=== PATIENT | female | born 1955 | race Caucasian/White ===

== ENCOUNTER → 2017-03-10 | Outpatient (CLI) | payer BC ==
[~2017-03-10] VITALS: Ht 152.4 cm; Wt 81.2 kg
[~2017-03-10] MED LIST: ACCUPRIL20 MG PO; AMLODIPINE; AMLODIPINE BESY10 MG PO; ASPIR 8181 M1 PO; ATARAX,VISTARIL25 MG PO; BACTRIM,SEPT1 TABLET PO; CLONAZEPAM0.5 MG PO; CRESTOR; CRESTOR10 MG PO; CYMBALTA30 MG PO; GLUCOPHAGE500 MG PO; HYDROCODON-ACE1 EAC7 PO; KEFLEX500 MG PO; LAMOTRIGINE100 MG PO; LANTUS 10100 UNITS/ SC; LANTUS 3 M100 UNITS1 SC; LANTUS100 UNIT/1 SQ; LISINOPRIL10 MG PO; LO-DOSE ASPIRIN81 M2 PO; LOVASTATIN20 MG PO; METOPROLOL SUCC50 MG PO; NORVASC5 MG PO; NOVOLOG 10100 UNITS/ SC; NOVOLOG100 UNIT/2 SQ; PROZAC20 MG PO; QUETIAPINE FUM300 MG PO; QUETIAPINE FUMA50 MG PO; QUINAPRIL; ZOFRAN; ZOFRAN4 MG PO
[2017-03-10 11:26] LABS: POINT-OF-CARE METER ID UU13113694
[2017-03-10 12:22] LABS: ANION GAP 15 MEQ/L (2-14); CHLORIDE 101 MEQ/L (99-109); GFR ESTIMATE (CALCULATED) > 59 mL/min/; GLUCOSE 264 mg/dL (70-99); POTASSIUM 4.5 MEQ/L (3.7-5.4); SAMPLE HEMOLYSIS CHECK 0; SAMPLE ICTERIC CHECK 0; SAMPLE LIPEMIA CHECK 0; SODIUM 136 MEQ/L (136-147); UREA NITROGEN (BUN) 15 mg/dL (9-23)
== END | disposition home or self-care (01) ==
LOC: AMB 10:52
PROVIDERS: Internal Medicine
PROC: 0DBN8ZX Excision of Sigmoid Colon, Via Natural or Artificial Opening Endoscopic, Diagnostic (ICD-10-PCS; principal; 2017-03-10)
DX: D12.5 Benign neoplasm of sigmoid colon (principal); K63.3 Ulcer of intestine; K64.8 Other hemorrhoids; I10 Essential (primary) hypertension; E11.9 Type 2 diabetes mellitus without complications; F41.9 Anxiety disorder, unspecified; K21.9 Gastro-esophageal reflux disease without esophagitis; E78.5 Hyperlipidemia, unspecified; Z79.82 Long term (current) use of aspirin; Z79.4 Long term (current) use of insulin; Z79.1 Long term (current) use of non-steroidal anti-inflammatories (NSAID); Z79.899 Other long term (current) drug therapy
CPT/HCPCS: 80048; 82378; 82948; 88305; 93005; J2250; J3010

== ENCOUNTER → 2017-04-25 | Outpatient (CLI) | payer BC ==
[~2017-04-25] VITALS: Ht 152.4 cm; Wt 74.8 kg
[~2017-04-25] MED LIST changes: +TERCONAZOLE80 MG VG
[2017-04-25 11:02] LABS: POINT-OF-CARE METER ID UU14174212
[2017-04-25 11:57] LABS: POINT-OF-CARE METER ID UU13113819
== END | disposition home or self-care (01) ==
LOC: AMB 04-04 10:30
PROVIDERS: Internal Medicine
PROC: 3E0H8GC Introduction of Other Therapeutic Substance into Lower GI, Via Natural or Artificial Opening Endoscopic (ICD-10-PCS; principal; 2017-04-25)
DX: Z09 Encounter for follow-up examination after completed treatment for conditions other than malignant neoplasm (principal); Z86.018 Personal history of other benign neoplasm; K21.9 Gastro-esophageal reflux disease without esophagitis; Z79.82 Long term (current) use of aspirin
CPT/HCPCS: 82948

== ENCOUNTER 2017-05-06 11:02 | Inpatient (IN) | payer BC ==
[~2017-05-06] VITALS: Ht 152.4 cm; Wt 74.3 kg
[2017-06-04] MEDS ORDERED: LANTUS 3 M100 UNITS1 SC (12:50)
[2017-06-05 08:56] VITALS: BP 155/72
[2017-06-05 08:58] LABS: POINT-OF-CARE METER ID UU13113694
[2017-06-05 09:39] LABS: ANION GAP 14 MEQ/L (2-14); CHLORIDE 106 MEQ/L (99-109); GFR ESTIMATE (CALCULATED) > 59 mL/min/; POTASSIUM 4.3 MEQ/L (3.7-5.4); SAMPLE HEMOLYSIS CHECK 0; SAMPLE ICTERIC CHECK 0; SAMPLE LIPEMIA CHECK 0; SODIUM 141 MEQ/L (136-147); UREA NITROGEN (BUN) 13 mg/dL (9-23)
[2017-06-05 09:45] LABS: GLUCOSE 168 mg/dL (70-99)
[2017-06-05 14:53] LABS: POINT-OF-CARE METER ID UU13113675
[2017-06-05 16:10] VITALS: BP 151/66
[2017-06-05 18:00] VITALS: BP 140/60
[2017-06-06 00:30] VITALS: BP 142/65
[2017-06-06 03:47] LABS: POINT-OF-CARE METER ID UU13113725
[2017-06-06 06:28] LABS: POINT-OF-CARE METER ID UU13113725
[2017-06-06 07:57] VITALS: BP 148/67
[2017-06-06 12:03] LABS: POINT-OF-CARE METER ID UU13113725
[2017-06-06 15:47] VITALS: BP 181/74
[2017-06-06 15:48] LABS: ALKALINE PHOSPHATASE 64 IU/L (3-129); ANION GAP 9 MEQ/L (2-14); CHLORIDE 102 MEQ/L (99-109); GFR ESTIMATE (CALCULATED) > 59 mL/min/; GLUCOSE 167 mg/dL (70-99); POTASSIUM 4.1 MEQ/L (3.7-5.4); SAMPLE HEMOLYSIS CHECK 0; SAMPLE ICTERIC CHECK 0; SAMPLE LIPEMIA CHECK 0; SODIUM 138 MEQ/L (136-147); TOTAL BILIRUBIN 0.3 MG/DL (0.0-1.0); UREA NITROGEN (BUN) 5 mg/dL (9-23)
[2017-06-07] VITALS (7 sets, daily range): BP systolic 124–167; BP diastolic 58–72
[2017-06-07] LABS: POINT-OF-CARE METER ID UU13113725
[2017-06-07 06:00] LABS: POINT-OF-CARE METER ID UU13113725
[2017-06-07 08:52] LABS: HEMATOCRIT 36.4 % (36.0-46.0); MCH 31.1 PG (29.0-34.0); MCHC 33.8 G/DL (30.0-36.0); MCV 91.9 FL (83-99); MEAN PLAT.VOLUME 9.4 uM^3 (9.5-12.4); PLATELET COUNT 239 K/uL (156-360); RBC DIS.WIDTH-CV 11.9 % (11.8-14.6); RBC DIS.WIDTH-SD 40.2 % (39-53); RED BLOOD COUNT 3.96 M/uL (3.80-5.20); WHITE BLOOD COUNT 12.5 K/uL (4.1-10.2)
[2017-06-08 00:28] LABS: POINT-OF-CARE METER ID UU13113725
[2017-06-08 03:49] VITALS: BP 132/68
[2017-06-08 08:10] VITALS: BP 178/74
[2017-06-08 08:38] LABS: HEMATOCRIT 39.1 % (36.0-46.0); MCH 30.5 PG (29.0-34.0); MCHC 32.7 G/DL (30.0-36.0); MCV 93.1 FL (83-99); MEAN PLAT.VOLUME 9.4 uM^3 (9.5-12.4); PLATELET COUNT 294 K/uL (156-360); RBC DIS.WIDTH-CV 12.2 % (11.8-14.6); RBC DIS.WIDTH-SD 41.8 % (39-53); WHITE BLOOD COUNT 12.1 K/uL (4.1-10.2)
[2017-06-08 11:27] LABS: POINT-OF-CARE METER ID UU13113725
[2017-06-08 20:26] VITALS: BP 157/70
[2017-06-09 00:05] VITALS: BP 130/60
[2017-06-09 07:23] VITALS: BP 154/67
[2017-06-09 09:50] LABS: HEMATOCRIT 37.8 % (36.0-46.0); MCH 30.2 PG (29.0-34.0); MCHC 31.7 G/DL (30.0-36.0); MEAN PLAT.VOLUME 9.4 uM^3 (9.5-12.4); PLATELET COUNT 290 K/uL (156-360); RBC DIS.WIDTH-CV 12.5 % (11.8-14.6); RBC DIS.WIDTH-SD 43.9 % (39-53); RED BLOOD COUNT 3.98 M/uL (3.80-5.20)
[2017-06-09 10:28] LABS: ANION GAP 18 MEQ/L (2-14); CHLORIDE 110 MEQ/L (99-109); GFR ESTIMATE (CALCULATED) > 59 mL/min/; GLUCOSE 201 mg/dL (70-99); POTASSIUM 4.4 MEQ/L (3.7-5.4); SAMPLE HEMOLYSIS CHECK 0; SAMPLE ICTERIC CHECK 0; SAMPLE LIPEMIA CHECK 0; SODIUM 138 MEQ/L (136-147); UREA NITROGEN (BUN) 6 mg/dL (9-23)
[2017-06-09 16:45] VITALS: BP 168/77
[2017-06-09 18:29] LABS: POINT-OF-CARE METER ID UU13113725
[2017-06-09 23:18] VITALS: BP 137/59
[2017-06-10 05:41] LABS: POINT-OF-CARE METER ID UU13113725
[2017-06-10 07:21] VITALS: BP 126/57
[2017-06-10 11:56] VITALS: BP 175/79
[2017-06-10 15:53] VITALS: BP 160/73
[2017-06-11] VITALS (8 sets, daily range): BP systolic 136–172; BP diastolic 63–77
[2017-06-11 12:02] LABS: POINT-OF-CARE METER ID UU13113725
[2017-06-12] VITALS (8 sets, daily range): BP systolic 149–188; BP diastolic 64–81
[2017-06-12 09:38] LABS: ANION GAP 8 MEQ/L (2-14); CHLORIDE 107 MEQ/L (99-109); GFR ESTIMATE (CALCULATED) > 59 mL/min/; GLUCOSE 295 mg/dL (70-99); SAMPLE HEMOLYSIS CHECK 0; SAMPLE ICTERIC CHECK 0; SAMPLE LIPEMIA CHECK 0; SODIUM 141 MEQ/L (136-147); UREA NITROGEN (BUN) 2 mg/dL (9-23)
[2017-06-12 10:13] LABS: MCH 30.6 PG (29.0-34.0); MCHC 35.8 G/DL (30.0-36.0); MCV 85.7 FL (83-99); MEAN PLAT.VOLUME 8.9 uM^3 (9.5-12.4); PLATELET COUNT 323 K/uL (156-360); RBC DIS.WIDTH-CV 12.6 % (11.8-14.6); RBC DIS.WIDTH-SD 39.1 % (39-53); RED BLOOD COUNT 3.85 M/uL (3.80-5.20); WHITE BLOOD COUNT 6.5 K/uL (4.1-10.2)
[2017-06-12 21:53] LABS: POINT-OF-CARE METER ID UU13113725
[2017-06-13 03:42] VITALS: BP 159/61
[2017-06-13 06:07] LABS: POINT-OF-CARE METER ID UU13113725
[2017-06-13 07:30] VITALS: BP 135/61
[2017-06-13 09:52] LABS: POINT-OF-CARE METER ID UU13113725
[2017-06-13 11:16] LABS: POINT-OF-CARE METER ID UU13113725
[2017-06-13 11:30] VITALS: BP 116/56
[2017-06-13 16:31] VITALS: BP 168/72
[2017-06-13 16:38] LABS: POINT-OF-CARE METER ID UU13113725
[2017-06-13 20:00] VITALS: BP 143/64
[2017-06-14 00:27] VITALS: BP 170/70
[2017-06-14 01:30] VITALS: BP 130/50
[2017-06-14 07:03] VITALS: BP 166/72
[2017-06-14 10:33] LABS: HEMATOCRIT 35.3 % (36.0-46.0); MCH 30.4 PG (29.0-34.0); MCHC 34.8 G/DL (30.0-36.0); MCV 87.4 FL (83-99); MEAN PLAT.VOLUME 9.4 uM^3 (9.5-12.4); PLATELET COUNT 333 K/uL (156-360); RBC DIS.WIDTH-CV 12.7 % (11.8-14.6); RBC DIS.WIDTH-SD 40.1 % (39-53); RED BLOOD COUNT 4.04 M/uL (3.80-5.20); WHITE BLOOD COUNT 7.4 K/uL (4.1-10.2)
[2017-06-14 10:57] LABS: ALKALINE PHOSPHATASE 69 IU/L (3-129); ANION GAP 8 MEQ/L (2-14); CHLORIDE 97 MEQ/L (99-109); GFR ESTIMATE (CALCULATED) > 59 mL/min/; GLUCOSE 345 mg/dL (70-99); POTASSIUM 3.5 MEQ/L (3.7-5.4); SAMPLE HEMOLYSIS CHECK 0; SAMPLE ICTERIC CHECK 0; SAMPLE LIPEMIA CHECK 0; SODIUM 139 MEQ/L (136-147); TOTAL BILIRUBIN 0.3 MG/DL (0.0-1.0); UREA NITROGEN (BUN) 4 mg/dL (9-23)
[2017-06-14 16:15] VITALS: BP 178/74
[2017-06-14 16:32] LABS: POINT-OF-CARE METER ID UU13113725
[2017-06-14 21:19] LABS: POINT-OF-CARE METER ID UU13113725
[2017-06-14 22:33] VITALS: BP 104/50
[2017-06-15] VITALS (7 sets, daily range): BP systolic 115–180; BP diastolic 56–98
[2017-06-15] MEDS ORDERED: PERCOCET 5/31 TABLET PO (09:22)
[2017-06-15] MEDS ORDERED: COLACE100 MG PO (09:22)
[2017-06-15 10:14] LABS: EOSINOPHIL (%) 1.9 % (0-5); EOSINOPHIL COUNT 0.2 K/uL (0-0.3); HEMATOCRIT 35.9 % (36.0-46.0); IMMATURE GRANULOCYTE (%) 0.8 % (0.0-0.7); IMMATURE GRANULOCYTE COUNT 0.1 K/uL; INSTRUMENT ABS NEUTROPHIL CT 5.8 K/uL; LYMPHOCYTE COUNT 1.1 K/uL (1.0-2.8); MCH 29.2 PG (29.0-34.0); MCHC 33.4 G/DL (30.0-36.0); MCV 87.3 FL (83-99); MEAN PLAT.VOLUME 9.1 uM^3 (9.5-12.4); MONOCYTE (%) 8.9 % (3-12); MONOCYTE COUNT 0.7 K/uL (0-0.8); NEUTROPHIL (%) 74.3 % (45-76); NEUTROPHIL COUNT 5.8 K/uL (1.8-6.4); PLATELET COUNT 316 K/uL (156-360); RBC DIS.WIDTH-CV 12.7 % (11.8-14.6); RBC DIS.WIDTH-SD 39.2 % (39-53); RED BLOOD COUNT 4.11 M/uL (3.80-5.20); WHITE BLOOD COUNT 7.9 K/uL (4.1-10.2)
[2017-06-15 10:16] LABS: POINT-OF-CARE METER ID UU13113725
[2017-06-15 10:23] LABS: CHLORIDE 98 mEq/L (99-109); POTASSIUM 2.8 mEq/L (3.7-5.4); SODIUM 140 mEq/L (136-147)
[2017-06-15 10:25] LABS: GLUCOSE 388 mg/dL (70-99)
[2017-06-15 10:26] LABS: ANION GAP 9 MEQ/L (2-14)
[2017-06-15 10:27] LABS: TOTAL BILIRUBIN 0.2 mg/dL (0.0-1.0)
[2017-06-15 10:28] LABS: ALKALINE PHOSPHATASE 72 IU/L (3-129)
[2017-06-15 10:29] LABS: GFR ESTIMATE (CALCULATED) > 59 mL/min/
[2017-06-15 10:30] LABS: UREA NITROGEN (BUN) 5 mg/dL (9-23)
[2017-06-15 10:35] LABS: TROP-I INTERPRETATION NEGATIVE; TROPONIN-I < 0.01 ng/mL (0.0-0.30)
[2017-06-15 11:55] LABS: MAGNESIUM 1.9 mg/dL (1.3-2.7)
[2017-06-15 15:21] LABS: TROP-I INTERPRETATION NEGATIVE; TROPONIN-I < 0.01 ng/mL (0.0-0.30)
[2017-06-15 17:33] LABS: POINT-OF-CARE METER ID UU13113717
[2017-06-15 17:34] LABS: ADD MIUA? YES; BILIRUBIN NEGATIVE; BLOOD NEGATIVE; COLOR YELLOW ((YELLOW)); GLUCOSE (STRIP) >=500; KETONES NEGATIVE; LEUKOCYTES TRACE; NITRITE NEGATIVE; PROTEIN (STRIP) NEGATIVE; SPECIFIC GRAVITY 1.045 (1.000-1.030); UROBILINOGEN 0.2 MG/DL (0.2-1.0)
[2017-06-15 17:48] LABS: BACTERIA NONE SEEN /HPF; BUDDING YEAST RARE; EPITHELIAL CELLS RARE /HPF; MUCUS NONE SEEN /LPF; RED BLOOD CELLS 20-30 /HPF (0-5); UCUL ADDED? NO; WHITE BLOOD CELLS 0-5 /HPF (0-5)
[2017-06-15 18:48] LABS: POINT-OF-CARE METER ID UU13113725
[2017-06-15 21:45] LABS: POINT-OF-CARE METER ID UU14174225
[2017-06-16 03:38] VITALS: BP 141/70
[2017-06-16 06:57] LABS: EOSINOPHIL (%) 2.9 % (0-5); EOSINOPHIL COUNT 0.2 K/uL (0-0.3); HEMATOCRIT 35.1 % (36.0-46.0); IMMATURE GRANULOCYTE (%) 0.8 % (0.0-0.7); IMMATURE GRANULOCYTE COUNT 0.1 K/uL; INSTRUMENT ABS NEUTROPHIL CT 4.7 K/uL; LYMPHOCYTE COUNT 1.8 K/uL (1.0-2.8); MCH 29.8 PG (29.0-34.0); MCHC 33.9 G/DL (30.0-36.0); MONOCYTE (%) 9.9 % (3-12); MONOCYTE COUNT 0.8 K/uL (0-0.8); NEUTROPHIL (%) 62.1 % (45-76); NEUTROPHIL COUNT 4.7 K/uL (1.8-6.4); PLATELET COUNT 327 K/uL (156-360); RBC DIS.WIDTH-CV 12.9 % (11.8-14.6); RED BLOOD COUNT 3.99 M/uL (3.80-5.20); WHITE BLOOD COUNT 7.6 K/uL (4.1-10.2)
[2017-06-16 07:22] LABS: ANION GAP 3 MEQ/L (2-14); CHLORIDE 103 MEQ/L (99-109); Estimated Average Glucose 298 mg/dL (70-123); GFR ESTIMATE (CALCULATED) > 59 mL/min/; GLUCOSE 162 mg/dL (70-99); HDL CHOLESTEROL 30 MG/DL (Desirable>=50); LDL CHOLESTEROL 27 mg/dL (Desirable<100); NON-HDL CHOLESTEROL 51 mg/dL (Desirable<160); POTASSIUM 3.9 MEQ/L (3.7-5.4); SAMPLE HEMOLYSIS CHECK 0; SAMPLE ICTERIC CHECK 0; SAMPLE LIPEMIA CHECK 0; SODIUM 141 MEQ/L (136-147); TOTAL CHOLESTEROL 81 mg/dL (Desirable<200); TRIGLYCERIDES 119 MG/DL (Normal: <150); UREA NITROGEN (BUN) 8 mg/dL (9-23)
[2017-06-16 08:23] VITALS: BP 160/66
[2017-06-16 11:41] VITALS: BP 126/54
[2017-06-16 12:09] LABS: POINT-OF-CARE METER ID UU14188625
== END 2017-06-16 17:57 | disposition home or self-care (01) | DRG 330 ==
LOC: 2SOUTH 11:02 → ENRESERV 06-04 21:39 → 5EAST 06-05 07:44 → 2SOUTH 06-05 07:44 → ENRESERV 06-05 12:22 → 2SOUTH 06-05 12:31 → 5EAST 06-05 16:08 → CANRESERV 06-14 13:56 → ENRESERV 06-14 13:56 → CANRESERV 06-15 11:28 → ENRESERV 06-15 11:31 → 5SOUTH 06-15 11:34
PROVIDERS: Hospitalist; Physician Assistant Surgical; Surgery
DX: C18.9 Malignant neoplasm of colon, unspecified (principal); K66.0 Peritoneal adhesions (postprocedural) (postinfection); E11.65 Type 2 diabetes mellitus with hyperglycemia; R31.29 Other microscopic hematuria; R53.1 Weakness; F31.81 Bipolar II disorder; E78.5 Hyperlipidemia, unspecified; I10 Essential (primary) hypertension; Z79.4 Long term (current) use of insulin; Z68.32 Body mass index [BMI] 32.0-32.9, adult; Z87.891 Personal history of nicotine dependence; Z90.49 Acquired absence of other specified parts of digestive tract; Z80.1 Family history of malignant neoplasm of trachea, bronchus and lung
CPT/HCPCS: 36415; 70450; 70496; 70498; 74000; 74177; 80048; 80053; 80061; 81003; 82948; 83036; 83735; 84132 91; 84484; 85025; 85027; 88309; 93005; 94760; 94799; J0295; J0330; J0360; J1170; J1650; J1815; J1885; J2250; J2405; J2710; J3010; J3480; J7050; J7120; S0030

== ENCOUNTER 2017-09-05 17:34 | Emergency (ER) | payer BC ==
[~2017-09-05] VITALS: Ht 152.4 cm; Wt 73.3 kg
[~2017-09-05 17:34] MED LIST changes: +COLACE100 MG PO; +PERCOCET 5/31 TABLET PO
[2017-09-05 18:30] LABS: CARBON DIOXIDE (BICARBONATE) 32.5 MEQ/L (20-31); HEMATOCRIT 37.4 % (36.0-46.0); MCHC 33.2 G/DL (30.0-36.0); MCV 90.6 FL (83-99); MEAN PLAT.VOLUME 9.5 uM^3 (9.5-12.4); PLATELET COUNT 302 K/uL (156-360); RBC DIS.WIDTH-CV 11.7 % (11.8-14.6); RBC DIS.WIDTH-SD 38.8 % (39-53); RED BLOOD COUNT 4.13 M/uL (3.80-5.20); WHITE BLOOD COUNT 7.2 K/uL (4.1-10.2)
[2017-09-05 18:37] LABS: CHLORIDE 102 mEq/L (99-109)
[2017-09-05 18:38] LABS: POTASSIUM 4.6 mEq/L (3.7-5.4); SODIUM 135 mEq/L (136-147)
[2017-09-05 18:41] LABS: ANION GAP 8 MEQ/L (2-14)
[2017-09-05 18:42] LABS: TOTAL BILIRUBIN 0.2 mg/dL (0.0-1.0)
[2017-09-05 18:43] LABS: ALKALINE PHOSPHATASE 120 IU/L (3-129); GFR ESTIMATE (CALCULATED) 37 mL/min/
[2017-09-05 18:45] LABS: UREA NITROGEN (BUN) 14 mg/dL (9-23)
[2017-09-05 18:50] LABS: GLUCOSE 522 mg/dL (70-99)
[2017-09-05 21:29] LABS: POINT-OF-CARE METER ID UU13113800; POINT-OF-CARE USER ID NUTJLF39
[2017-09-05 22:08] VITALS: BP 169/59
[2017-09-07 10:01] LABS: POINT-OF-CARE METER ID UU13113778
== END 2017-09-05 22:10 | disposition home or self-care (01) ==
LOC: EME 17:34
PROVIDERS: Physician Assistant
DX: E11.65 Type 2 diabetes mellitus with hyperglycemia (principal); I10 Essential (primary) hypertension; E78.5 Hyperlipidemia, unspecified; K21.9 Gastro-esophageal reflux disease without esophagitis; Z79.4 Long term (current) use of insulin; Z79.82 Long term (current) use of aspirin; Z90.49 Acquired absence of other specified parts of digestive tract; Z88.5 Allergy status to narcotic agent
CPT/HCPCS: 71020; 80053; 81003; 82010; 82803; 82948; 85027; 99281; 99283; J7030

== ENCOUNTER 2017-09-23 13:25 | Emergency (ER) | payer BC ==
[~2017-09-23] VITALS: Ht 152.4 cm; Wt 72.2 kg
[2017-09-23 17:06] VITALS: BP 143/65
== END 2017-09-23 17:08 | disposition home or self-care (01) ==
LOC: EME 13:25
DX: H53.8 Other visual disturbances (principal); E11.9 Type 2 diabetes mellitus without complications; Z79.4 Long term (current) use of insulin; I10 Essential (primary) hypertension; E78.5 Hyperlipidemia, unspecified; K21.9 Gastro-esophageal reflux disease without esophagitis; Z79.82 Long term (current) use of aspirin; Z88.5 Allergy status to narcotic agent
CPT/HCPCS: 99281; 99283

== ENCOUNTER 2017-11-02 16:42 | Emergency (ER) | payer BC ==
[~2017-11-02] VITALS: Ht 152.4 cm; Wt 71.9 kg
[2017-11-02 17:24] LABS: BASOPHIL (%) 0.7 % (0-1); EOSINOPHIL (%) 2.6 % (0-5); EOSINOPHIL COUNT 0.2 K/uL (0-0.3); HEMATOCRIT 42.3 % (36.0-46.0); HEMOGLOBIN 14.2 G/DL (11.9-15.5); IMMATURE GRANULOCYTE (%) 0.2 % (0.0-0.7); LYMPHOCYTE (%) 26.2 % (15-42); LYMPHOCYTE COUNT 1.5 K/uL (1.0-2.8); MCH 29.3 PG (29.0-34.0); MCHC 33.6 G/DL (30.0-36.0); MCV 87.4 FL (83-99); MONOCYTE (%) 8.7 % (3-12); MONOCYTE COUNT 0.5 K/uL (0-0.8); NEUTROPHIL (%) 61.6 % (45-76); NEUTROPHIL COUNT 3.5 K/uL (1.8-6.4); PLATELET COUNT 253 K/uL (156-360); RBC DIS.WIDTH-CV 11.6 % (11.8-14.6); RBC DIS.WIDTH-SD 37.2 % (39-53); RED BLOOD COUNT 4.84 M/uL (3.80-5.20); WHITE BLOOD COUNT 5.7 K/uL (4.1-10.2)
[2017-11-02 17:34] LABS: CHLORIDE 100 mEq/L (99-109); POTASSIUM 4.6 mEq/L (3.7-5.4); SODIUM 133 mEq/L (136-147)
[2017-11-02 17:36] LABS: GLUCOSE 477 mg/dL (70-99)
[2017-11-02 17:40] LABS: CREATININE 1.2 mg/dL (0.6-1.3); GFR ESTIMATE (CALCULATED) 48 mL/min/
[2017-11-02 17:41] LABS: UREA NITROGEN (BUN) 23 mg/dL (9-23)
[2017-11-02 21:24] LABS: APPEARANCE SL.HAZY ((CLEAR)); BILIRUBIN NEGATIVE; BLOOD SMALL; COLOR YELLOW ((YELLOW)); GLUCOSE (STRIP) >=500; KETONES NEGATIVE; LEUKOCYTES LARGE; NITRITE NEGATIVE; PROTEIN (STRIP) NEGATIVE; SPECIFIC GRAVITY 1.028 (1.000-1.030); UROBILINOGEN 0.2 MG/DL (0.2-1.0)
[2017-11-02] MEDS ORDERED: BACTRIM,SEPT1 TABLET PO (21:39)
[2017-11-02] MEDS ORDERED: KEFLEX500 MG PO (21:39)
[2017-11-02 21:43] LABS: EPITHELIAL CELLS 1+ /HPF; RED BLOOD CELLS 0-5 /HPF (0-5); WHITE BLOOD CELLS 15-20 /HPF (0-5)
[2017-11-02 21:44] LABS: BACTERIA RARE /HPF; MUCUS NONE SEEN /LPF; UCUL ADDED? YES
[2017-11-02 21:48] VITALS: BP 138/61
== END 2017-11-02 21:49 | disposition home or self-care (01) ==
LOC: EME 16:42
PROVIDERS: Physician Assistant Medical
DX: E11.65 Type 2 diabetes mellitus with hyperglycemia (principal); L03.115 Cellulitis of right lower limb; N39.0 Urinary tract infection, site not specified; K21.9 Gastro-esophageal reflux disease without esophagitis; E78.5 Hyperlipidemia, unspecified; Z79.4 Long term (current) use of insulin; Z79.82 Long term (current) use of aspirin; Z90.49 Acquired absence of other specified parts of digestive tract; Z88.5 Allergy status to narcotic agent
CPT/HCPCS: 80048; 81003; 82948; 85025; 87086; 99281; 99285; J7030

== ENCOUNTER 2018-04-25 20:49 | Emergency (ER) | payer BC ==
[~2018-04-25] VITALS: Ht 152.4 cm; Wt 86.0 kg
[2018-04-25 20:50] VITALS: BP 181/55
[2018-04-25] MEDS ORDERED: MOTRIN800 MG PO (22:58)
[2018-04-25] MEDS ORDERED: AUGMENTIN875 MG PO (22:58)
== END 2018-04-25 23:12 | disposition home or self-care (01) ==
LOC: EME 20:49
PROC: 3E0234Z Introduction of Serum, Toxoid and Vaccine into Muscle, Percutaneous Approach (ICD-10-PCS; principal; 2018-04-25)
DX: S90.511A Abrasion, right ankle, initial encounter (principal); W54.0XXA Bitten by dog, initial encounter; Z23 Encounter for immunization; I10 Essential (primary) hypertension; Z90.49 Acquired absence of other specified parts of digestive tract; Z88.5 Allergy status to narcotic agent
CPT/HCPCS: 73610; 99281; 99283

== ENCOUNTER → 2018-06-08 | Outpatient (CLI) | payer BC ==
[~2018-06-08] VITALS: Ht 152.4 cm; Wt 82.1 kg
[~2018-06-08] MED LIST changes: +ADVIL200 MG PO; +AUGMENTIN875 MG PO; +MOTRIN800 MG PO; +PIOGLITAZONE HC30 MG PO; +TRADJENTA5 MG PO; +TRAZODONE HCL50 MG PO
== END | disposition home or self-care (01) ==
LOC: AMB 09:30
PROVIDERS: Internal Medicine
PROC: 0DJD8ZZ Inspection of Lower Intestinal Tract, Via Natural or Artificial Opening Endoscopic (ICD-10-PCS; principal; 2018-06-08)
DX: Z08 Encounter for follow-up examination after completed treatment for malignant neoplasm (principal); Z85.038 Personal history of other malignant neoplasm of large intestine; F31.81 Bipolar II disorder; K59.09 Other constipation; I10 Essential (primary) hypertension; E11.9 Type 2 diabetes mellitus without complications; E78.00 Pure hypercholesterolemia, unspecified; Z97.4 Presence of external hearing-aid; R91.1 Solitary pulmonary nodule; Z90.49 Acquired absence of other specified parts of digestive tract; Z80.1 Family history of malignant neoplasm of trachea, bronchus and lung; Z79.82 Long term (current) use of aspirin; Z88.5 Allergy status to narcotic agent; Z68.36 Body mass index [BMI] 36.0-36.9, adult
CPT/HCPCS: 82948; 93005; J2250